=== PATIENT | male | born 1995 | race Caucasian/White ===

== ENCOUNTER 2022-01-06 02:06 | Day surgery (SDC) | payer OTHER, SELFPAY ==
[2021-12-31 14:40] VITALS: BMI 28.8
--- NOTE | 2021-12-31 14:44 | PC.NURSE ---
Report to the Outpatient Waiting Room, entrance under the green pavilion located off [facility], at time 1130 on date 01/06/22. Planned Procedure Time: 1330. Time changes happen often and if your time is changed the preop area will call you the afternoon before. - You and your visitor will be asked to self-screen and do not enter if you have any COVID symptoms. - We encourage only one visitor and NO visitors under age 16 are allowed at this time. Your visitor will receive communication by the phone number that is given day of service. - The patient visitor is requested to social distance or may leave the building when not with patient due to restrictions. - A mask is required within the hospital. Patients may have clear liquids (water, carbonated beverages, clear teas, apple juice) until 3 hours prior to surgery with a maximum of 20 ounces. - No food from midnight until time of surgery Take the following medications with a SIP of water the morning of surgery: INHALERS Medications to discontinue per physician: N/A Date to take last dose: N/A Please no make-up, nail french, hairspray, perfume, deodorant, or body powder the day of surgery. No jewelry (including any body piercings) or valuables the day of surgery, leave them at home. Please take a shower or bath the night before, or the morning of, surgery with an antibacterial soap. Wear comfortable, loose fitting clothing. - Jewelry must be removed prior to entering the operating room. Rings and piercings that are not removed may be cut off. - The hospital will not accept responsibility for valuables. - Please leave all valuables, including medications, at home the day of surgery. If you are going home after surgery, a licensed mule driver must drive you home. - NO public transportation without another adult. - We recommend that an adult stay with you for 24 hours following discharge. - We also recommend that you do not drive, make important decision, drink alcoholic beverages, or take any drugs that were not prescribed by your health care provider for at least 24 hours after your discharge time. Follow any additional instructions given to you from your surgeon. If you or anyone in your household have experienced Covid symptoms in the past week, please notify your surgeon or the nurse liaison at the phone number below for possible testing. Telephone instructions given to PT - JÚNIOR AUGUSTEHATTEN and asked if any additional questions and then verbalized understanding. Patient advised to call surgeon office or pre surgery nurse liaison [phone] if any additional questions.
[2022-01-06 08:03] VITALS: BP 137/87; PULSE 89; RESP 14; TEMP 36.6; O2SAT 99
[2022-01-06] MEDS: LACTATED RINGERS 1,000 ML 30 ML IV CONT (08:07)
--- NOTE | 2022-01-06 08:27 | WPDHPUPDATE1 ---
History and Physical Update Update Date/Time: 01/06/22 08:27 History and Physical has been reviewed, including an updated exam of the patient. There are NO changes in the patient's condition. Risks, benefits, and alternatives have been discussed and questions answered. Patient agrees to proceed with procedure.
--- NOTE | 2022-01-06 08:49 | P.PNAN_ITS ---
Anes - Initial Pre Proc Eval Procedure: Operation Date: 01/06/22 09:30 Proposed Procedures p Excisional Biopsy Right Thigh Mass - Elizabeth Manzanares MD Date/Time: 01/06/22 08:49 Surgeon: Elizabeth Manzanares MD Pre Op Diagnosis: Right Thigh Mass Patient Data Age: 26 Gender: M Height: 1.75 m Weight: 87.4 kg Last Vital Signs Temp 36.6 C 01/06/22 08:03 Pulse 89 01/06/22 08:03 Resp 14 01/06/22 08:03 BP 137/87 01/06/22 08:03 Pulse Ox 99 01/06/22 08:03 O2 Del Method Room Air 01/06/22 08:03 Allergies Allergy/AdvReac Type Severity Reaction Status Date / Time No Known Allergies Allergy Verified 01/06/22 08:07 Home Medications Medication Instructions Recorded Confirmed Type albuterol sulfate 90 mcg/actuation 2 puff inhalation Q4H PRN 12/13/21 01/06/22 Rx aerosol inhaler (Ventolin HFA) shortness of breath or wheezing #6.7 grams fluticasone furoate 100 1 inh inhalation DAILY #30 ea 12/13/21 12/31/21 Rx mcg/actuation blister powder for inhalation (Arnuity Ellipta) montelukast 10 mg tablet 10 mg PO DAILY 12/13/21 12/31/21 History Patient hx anesthesia problems: none Family hx anesthesia problems: none Results Review: All pre-operative results and documents have been reviewed as part of the pre- operative evaluation. 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 Surgical History Surgical History [place] teeth extracted Family History Family History Grandparent Heart disease Father Diabetes mellitus Heart disease Social History Social History Smoking packs per day: 0.5 Smoking cigarettes per day: 10.0 Years smoked: 4 Smoking pack-years: 2.00 Smoking status: Former smoker Tobacco type: cigarettes Smoking end date: 02/27/13 Alcohol intake: current Alcohol use details: 2/MONTH Substance use: never Substance use type: does not use Living arrangements: with family 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 Informed Consent: The patient's anesthetic plan and its attendant risks and benefits were discussed with the patient/family/POA. Questions were solicited and answers provided to the satisfaction of the patient/family/POA.
[2022-01-06] MEDS: ceFAZolin SODIUM 1 GM VIAL 2 GM IV PUSH (09:41)
[2022-01-06] MEDS: BUPIVACAINE/EPINEPHRINE 0.25% 50 ML VIAL 20 ML INFILTRATE (09:44)
[2022-01-06 10:21] VITALS: BP 112/59; PULSE 94; RESP 12; O2SAT 94
--- NOTE | 2022-01-06 10:27 | W.PM.PROC2 ---
Procedure Note - Detailed Date of Procedure 01/06/22 Pre-op Diagnosis Bilobed Right Thigh Mass measuring 13x11 cm Post-op Diagnosis Same Procedure Performed Excisional biopsy bilobed right thigh mass measuring 11 x 13 cm Surgeon Elizabeth Manzanares MD Anesthesia MAC and Local Indications 26-year-old male presenting to the office with a bilobed right thigh mass measuring 11 x 13 cm. Patient reports slow growth in size as well as discomfort in the area. 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 After adequate induction of MAC anesthesia, the patient prepped and draped in the normal sterile fashion. A time-out was then done to verify patient's identity, as well as procedure being performed. I began by making an incision over the area of the larger lower mass. This was taken down through the dermis and into the subcutaneous tissue. At this point, a ill-defined mass was discovered. This was not well encapsulated and looked to be a fragmented and multi lobular lipoma. The lipoma encompassed nearly the entire subcutaneous tissue but not into the fascia or muscle. I was able to carefully excise this entire area, including the upper lobe. This tissue was all noted to be largely fragmented lipoma. This will all be sent to pathology for further review. Once these areas were completely excise, I copiously irrigated the cavity. Cavity measured approximately 11 by 13 cm. I locally anesthetized the cavity. I then closed subcutaneous tissue with 3-0 Vicryl suture. The skin was closed with 4-0 Monocryl subcuticular suture. Dermabond was then placed on the wound. Patient tolerated the procedure well and was alert and awake in the operating room postoperatively. He will be transferred to the recovery room in stable condition. Estimated Blood Loss 10 Pathology Yes Complications No immediate complications Condition Stable Disposition PACU [facility] Billing Surgery - Charge Forward: Surgery Billing
[2022-01-06 10:50] VITALS: BP 104/56; PULSE 77; O2SAT 97
[2022-01-06 11:20] VITALS: BP 99/73; PULSE 72
== END 2022-01-06 11:40 | disposition home or self-care (01) ==
PROVIDERS: PCP Family Medicine; Visit Provider Surgery
PROC: (CPT 27337; principal; 2022-01-06 09:30)
DX: D17.23 Benign lipomatous neoplasm of skin and subcutaneous tissue of right leg (principal); J45.909 Unspecified asthma, uncomplicated; Z79.51 Long term (current) use of inhaled steroids; Z87.891 Personal history of nicotine dependence
CPT/HCPCS: 27337; 88304; J0690; J2250; J2704; J3010; J7120